=== PATIENT | female | born 1965 | race Caucasian/White ===

== ENCOUNTER 2019-01-15 05:20 | Inpatient (IN) | payer BC ==
--- NOTE | 2019-01-13 11:11 | PREOPHP ---
DATE OF ADMISSION: 01/15/2019 HISTORY OF PRESENT ILLNESS: This is a 53-year-old female, 5, para 4, abortions 1 with a prev ious tubal ligation. This patient has been fighting a fibroid uterus for a long time and having all kinds of medical treatment without alleviation of her bleeding and pain. She was referred to me by h er clinic due to uterine prolapse as well. The patient was feeling her cervix was coming out of her, and she had 2 jobs standing up and she was having difficulties with that problem. The patient had n o problems with incontinence and no discharge and no problems. Otherwise, she was not sexually activ e at the moment. She had a previous section and history of hypertension that she has been t reating with benazepril and Hydrochlorothiazide. ALLERGIES: She is not allergic to any medication. FAMILY HISTORY: Hypertension and heart attacks. The patient was evaluated and was found to have a v jamia large uterus high up in the pelvis 13 cm of diameter. The procedure was to do an abdominal hyste rectomy bilateral salpingectomy. PHYSICAL EXAMINATION: GENERAL APPEARANCE: Good. VITAL SIGNS: Blood pressure of 130/60, pulse is 80, respirations 16. She weighs 178 pounds and she is 5 feet 3 inches. HEAD AND NECK: Normal. BREASTS: Soft, nontender, no masses. CHEST: Clear. HEART: Normal sinus rhythm. LUNGS: Clear. ABDOMEN: Soft and the uterus is palpated above the pubic bone. PELVIC: With a cystocele grade II. The cervix is at the introitus. The uterus was retroverted and enlarged. Adnexa were nonpalpable. GENITALIA: Normal. RECTAL: Normal. PLAN: The patient is advised for a total abdominal hysterectomy, bilateral salpingectomy due to a la rge uterus previous section and the possibility of pelvic adhesions. The procedure was firs t offered to be vaginally until we found out that size of the uterus being so large. The patient has been advised of the possible risks and possible complications of the procedure with her alternatives and options. Written information was provided. She had no more questions and agreed to go ahead wi th the procedure with full understanding and no more questions. Dictated By: ALPHONSO PADRON/KAT Conf#: [id number] [facility]#: [id number]
[~2019-01-15] VITALS: Ht 160 cm; Wt 83.0 kg
[2019-01-15] VITALS (22 sets, daily range): BP systolic 100–136; BP diastolic 52–69; PULSE 69–93; RESP 11–21; Ht 160 cm; Wt 83.0 kg
[2019-01-15] MEDS ORDERED: HYDR12.58 PO (06:49)
[2019-01-15] MEDS ORDERED: BENA40TA56 PO (06:49)
[2019-01-15] MEDS ORDERED: LACTATED RINGER'S 1,000 ML IV SCH (07:00)
[2019-01-15] MEDS ORDERED: CEFAZOLIN 2 GM/50 ML (PMX) 50 ML IVPB ONE (07:00)
--- NOTE | 2019-01-15 07:14 | PREAC ---
Date/Time of Note Date/Time of Note DATE: 01/15/19 TIME: 07:10 Anesthesia Eval and Record Evaluation Time Pre-Procedure Interview DATE: 01/15/19 TIME: 07:10 Age 53 Sex female NPO: 8 hrs Preoperative diagnosis operator lights bleed Planned procedure RICHY Past Medical History Past Medical History: None Cardio: HTN Surgery & Anesthesia Issues No known issue Meds Anticoagulation: No Beta Danii within 24 hr: No Reason Beta Danii not given: Pt. not on B-Danii Reported Medications Hydrochlorothiazide* (Hydrochlorothiazide*) 12.5 Mg Tablet, 12.5 MG PO DAILY, #30 TAB 01/15/19 Benazepril Hcl* (Benazepril Hcl*) 40 Mg Tablet, 40 MG PO DAILY, #30 TAB 01/15/19 Current Medications Cefazolin Sodium/ Dextrose 50 ml @ 100 mls/hr PRE-OP ONCE IVPB ; Start 01/15/19 at 07:00; Stop 01/15/19 at 07:29 Lactated Ringer's 1,000 ml @ 125 mls/hr Q8H IV ; Start 01/15/19 at 07:00 Meds reviewed: Yes Allergies Coded Allergies: No Known Allergy (Unverified , 01/15/19) Allergies Reviewed: No Labs/Studies Labs Reviewed: Reviewed by anesthesiologist Blood Bank Test 01/15/19 05:59 Blood Product Summary Counts test: N/A Pre-procedure Exam Last vitals Vital Signs Date Temp Pulse Resp B/P (MAP) Pulse Ox O2 O2 Flow FiO2 Time Delivery Rate 01/15/19 98.6 74 18 125/54 100 Room Air 06:48 (77) Airway: Adequate mouth opening Mallampati: Mallampati II Teeth: Normal Lung: Normal Heart: Normal ASA Physical Status ASA physical status: 3 Emergency: None Planned Anesthetic General/MAC: ETT Neuraxial: Spinal Pre-operative Attestations Prior to commencing anesthesia and surgery, the patient was re-evaluated, there was verification of: *The patient's identity *The results of appropriate recent lab work and preoperative vital signs *The above evaluation not changing prior to induction *Anesthetic plan, risk benefits, alternative and complications discussed with patient/family; questions answered; patient/family understands, accepts and wishes to proceed. DIEGO HANDY MD Jan 15, 2019 07:14
--- NOTE | 2019-01-15 07:34 | HPN ---
Date/Time of Note Date/Time of Note DATE: 01/15/19 TIME: 07:34 Interval H&P Admission Note Pt. seen H&P reviewed: No system changes ALPHONSO GUNDERSON MD Jan 15, 2019 07:34
[2019-01-15] MEDS ORDERED: ROCURONIUM 50 MG INJ ONE (07:48)
[2019-01-15] MEDS ORDERED: PROPOFOL 20 ML ONE (07:48)
[2019-01-15] MEDS ORDERED: MIDAZOLAM 1 MG/ML 2 ML INJ ONE (07:48)
[2019-01-15] MEDS ORDERED: LIDOCAINE 1% (MDV) 20 ML INJ ONE (07:49)
[2019-01-15] MEDS ORDERED: morphine SULFATE/PF (10 MG/10 ML) INJ ONE (07:55)
[2019-01-15] MEDS ORDERED: DEXAMETHASONE 4 MG/ML 5 ML INJ ONE (09:52)
[2019-01-15] MEDS ORDERED: ONDANSETRON 4 MG INJ ONE (09:52)
--- NOTE | 2019-01-15 10:28 | PAC ---
Date/Time of Note Date/Time of Note DATE: 01/15/19 TIME: 10:27 Post-Anesthesia Notes Post-Anesthesia Note Last documented vital signs Vital Signs Date Temp Pulse Resp B/P (MAP) Pulse Ox O2 O2 Flow FiO2 Time Delivery Rate 01/15/19 98.6 74 18 125/54 100 Room Air 06:48 (77) Activity: WNL Respiratory function: WNL Cardiovascular function: WNL Mental status: Baseline Pain reasonably controlled: Yes Hydration appropriate: Yes Nausea/Vomiting absent: Yes DIEGO HANDY MD Jan 15, 2019 10:28
[2019-01-15] MEDS ORDERED: DIPHENHYDRAMINE 50 MG INJ IV PRN (10:30)
[2019-01-15] MEDS ORDERED: NALOXONE (0.4 MG/ML) INJ IV PRN (10:30)
[2019-01-15] MEDS ORDERED: ZOLPIDEM 5 MG TAB PO PRN (10:30)
[2019-01-15] MEDS ORDERED: ONDANSETRON INJ 6 MG in DEXTROSE 5% 50 ML IVPB PRN (10:30)
[2019-01-15] MEDS ORDERED: HYDROmorphONE 1 MG/ML SYG IV PRN (10:30)
[2019-01-15] MEDS ORDERED: ONDANSETRON 4 MG INJ IV PRN (10:30)
[2019-01-15] MEDS ORDERED: HYDROCODONE/APAP (5/325) TAB PO PRN (10:30)
[2019-01-15] MEDS ORDERED: HYDROmorphONE 0.5 MG/0.5 ML SYG IV PRN (10:30)
[2019-01-15] MEDS ORDERED: DIPHENHYDRAMINE 50 MG CAP PO PRN (10:30)
--- NOTE | 2019-01-15 10:46 | SIPON ---
Date/Time of Note Date/Time of Note DATE: 01/15/19 TIME: 10:44 Operative Report Preoperative Diagnosis Intractable menometrorrhagia and pelvic pain. Large fibroid uterus Pelvic adhesions Perimenopause anemia Hypertension Postoperative Diagnosis Same plus left ovarian cyst Operation/Procedure Performed Total abdominal hysterectomy and bilateral salpingectomy. Left ovarian cystectomy Extensive lysis of adhesions Surgeon see signature line pediatric assistant Dr Hayden Anesthesia: general Estimated blood loss: 100 - 150 ml's Transfusion Required none Specimen Uterus and tubes and left ovarian cyst wall Grafts/Implants none Complications none ALPHONSO GUNDERSON MD Jan 15, 2019 10:46
[2019-01-15] MEDS: KETOROLAC 30 MG INJ IV SCH ×3 (11:47→22:42)
[2019-01-15] MEDS: LACTATED RINGER'S 1,000 ML IV SCH ×2 (11:48→18:51)
[2019-01-15] MEDS: METOCLOPRAMIDE 10 MG TAB PO SCH ×3 (12:20→23:55)
--- NOTE | 2019-01-15 14:09 | OPR ---
DATE OF OPERATION: 01/15/2019 PROCEDURE: Total abdominal hysterectomy, bilateral salpingectomy, right ovarian cystectomy, lysis of adhesions. PREOPERATIVE DIAGNOSES: 1. Intractable menometrorrhagia. 2. Large fibroid uterus. 3. Perimenopause. 4. Pelvic adhesions. 5. Anemia. 6. Hypertension. POSTOPERATIVE DIAGNOSES: 1. Intractable menometrorrhagia. 2. Large fibroid uterus. 3. Perimenopause. 4. Pelvic adhesions. 5. Anemia. 6. Hypertension. 7. Right ovarian cyst. 8. Severe pelvic adhesions. SURGEON: Alphonso Mancilla MD. RESIDENT CARE ASSOCIATE: Dr. Cali. ANESTHESIOLOGIST: Alea Turner MD. ANESTHESIA: General anesthesia and Duramorph. COMPLICATIONS: None. DESCRIPTION OF PROCEDURE: The patient was given general anesthesia and Duramorph anesthesia, placed in the supine position. The abdomen was prepped and draped and a Bosch catheter was placed in the bl adder. A transverse incision was made suprapubically over the midline where the previous se ction was performed, the size of a 10 cm over the incision. The abdominal cavity was reached. There was scar tissue on the incision and there was scar tissue at the level of the bladder when we inspec t the abdomen. There were no omental adhesions, but there was severe adhesion of the bladder to the cervix and there was a right ovarian cyst. There were signs of tubal ligation. The self-retaining r etractor was placed. The uterus with the fibroid was held up with a Jeffrey clamp and the round ligame nts were burned and cut with the bipolar instrument and the ovarian ligament and tubes were cut in guanako th sides and the dissection was followed by incising the anterior peritoneum to produce a bladder fla p. The area was solid between the cervix and bladder where we used the cautery to try to separate it . The uterine vessels were clamped, cut and tied and also burned and the and the cardinal ligaments and uterosacral ligaments were clamped with straight clamps, cut and ligated with #1 Vicryl sutures a nd the sutures were held. The vaginal canal was reached posteriorly where we found possible nabothia n cysts, a large nabothian cyst on the cervix and also another mass that was more solid that gave us a wide resection of the vaginal cuff due to the presence of these tumors. The corners of the vagina were held and the vagina was closed with #1 Vicryl interrupted sutures for the corners of the vagina and interrupted sutures for closure of the rest of the vagina. The cavity was looked at underwater a nd there was no active bleeding. At this point, there was a cyst on the right ovary that was removed with cautery first and then we peeled the cyst and put a stitch with a 2-0 Vicryl on the ovarian tis andres to produce a hemostasis. We did this as a continuous suture. The right and left tube were remov ed by cauterizing the mesosalpinx on both sides with the bipolar instrument used and hemostasis was a chieved. The cavity was again cleaned out. Both ovaries were protected with Interceed to prevent ad hesions. The cavity was closed using a 2-0 Vicryl suture for peritoneum, #0 PDS looped suture to the fascia, 2-0 Vicryl for the subcutaneous tissue, 3-0 Monocryl subcuticular to the skin and Dermabond and Steri-Strips, a pressure dressing as well. The patient tolerated the procedure well and left the OR awake and stable. Sponge counts and instrument counts were correct. Intravenous antibiotics wer e given for prophylaxis. Blood loss was minimal, less than 100 mL. The urine was clear at the end o f the procedure. The sponge counts and instrument counts were correct again. The ureters were track ed down with good peristalsis and the patient left the OR awake and stable. Dictated By: ALPHONSO PADRON/KAT Conf#: [id number] [facility]#: [id number]
[2019-01-15] MEDS: CEFAZOLIN 1 GM/50 ML (PMX) 50 ML IVPB SCH ×2 (14:20→21:46)
[2019-01-16 00:22] VITALS: BP 113/59; PULSE 65; RESP 18
[2019-01-16] MEDS: LACTATED RINGER'S 1,000 ML IV SCH (03:34)
[2019-01-16 04:10] VITALS: BP 128/59; PULSE 58; RESP 18
[2019-01-16] MEDS: KETOROLAC 30 MG INJ IV SCH ×4 (04:43→22:52)
[2019-01-16] MEDS: METOCLOPRAMIDE 10 MG TAB PO SCH ×4 (05:51→22:54)
[2019-01-16] MEDS: CEFAZOLIN 1 GM/50 ML (PMX) 50 ML IVPB SCH (05:51)
[2019-01-16 08:25] VITALS: BP 128/63; PULSE 66; RESP 18
[2019-01-16] MEDS: HYDROCHLOROTHIAZIDE 12.5 MG CAP PO SCH (09:22)
[2019-01-16] MEDS: BENAZEPRIL 40 MG TAB PO SCH (09:23)
--- NOTE | 2019-01-16 09:46 | PN ---
Date/Time of Note Date/Time of Note DATE: 01/16/19 TIME: 09:45 Assessment/Plan Lines/Catheters IV Catheter Type (from Nrsg): Peripheral IV Bosch in Place (from Nrsg): Yes Subjective 24 Hr Interval Summary Day 1 postop. Afebrile Feels good with no pain. Stable, encouraged ambulation. Patient explained about her surgical findings and procedure and she is very uli reciative of it Constitutional: no complaints Feeding: advancing diet Pain Control: mild Detailed Summary Eyes: no complaints ENT: no complaints Respiratory: no complaints Cardiovascular: no complaints Gastrointestinal: no complaints Genitourinary: no complaints Musculoskeletal: no complaints Skin: no complaints Neurologic: no complaints Endocrine: no complaints Lymphatic: no complaints Psychological: no complaints, nl mood/affect Immunologic: no complaints Exam/Review of Systems Vital Signs Vitals Vital Signs Date Temp Pulse Resp B/P (MAP) Pulse Ox O2 O2 Flow FiO2 Time Delivery Rate 01/16/19 98.5 66 18 128/63 98 Nasal 08:25 (84) Cannula 01/16/19 2.0 04:10 Intake and Output 01/15/19 01/15/19 01/16/19 1515:00 23:00 07:00 IntakeIntake Total 900 ml 1290 ml 1425 ml OutputOutput Total 150 ml 400 ml BalanceBalance 750 ml 1290 ml 1025 ml Exam Constitutional: alert, oriented, well developed Psych: no complaints, nl mood/affect Head: normocephalic, atraumatic Eyes: nl conjunctiva, EOMI, nl lids, nl sclera ENMT: nl external ears & nose, nl lips & teeth, nl nasal mucosa & septum, mucosa pink and moist Neck: supple, non-tender Respiratory: clear to auscultation, normal air movement Cardiovascular: regular rate and rhythm, nl pulses Gastrointestinal: soft, nl liver, spleen, non-tender Musculoskeletal: nl extremities to inspection, nl gait and stance Extremities: normal pulses Neurological: FLIGHT ENGINEER HELICOPTER II-XII intact, nl mental status, nl speech, nl strength Skin: nl turgor, rash or lesions Lymph: nl lymph nodes Results Result Diagram: 01/16/19 0432 01/16/19 0432 ALPHONSO GUNDERSON MD Jan 16, 2019 09:46
[2019-01-16 14:07] VITALS: BP 126/61; PULSE 59; RESP 18
[2019-01-16 19:37] VITALS: BP 118/59; PULSE 64; RESP 18
[2019-01-16] MEDS ORDERED: BISACODYL (EC) 5 MG TAB PO ONE (22:00)
[2019-01-17 01:18] VITALS: BP 130/62; PULSE 85; RESP 18
[2019-01-17] MEDS: METOCLOPRAMIDE 10 MG TAB PO SCH ×3 (05:20→17:05)
[2019-01-17] MEDS: KETOROLAC 30 MG INJ IV SCH ×4 (05:20→22:33)
--- NOTE | 2019-01-17 08:09 | PN ---
Date/Time of Note Date/Time of Note DATE: 01/17/19 TIME: 08:07 Assessment/Plan Lines/Catheters IV Catheter Type (from Nrsg): Saline Lock Bosch in Place (from Nrsg): Yes Subjective 24 Hr Interval Summary Day 2 postop. Afebrile, feels good, had several bowel movements after laxative. No complaints Pain is tolerated Encouraged ambulation. Possible discharge home tomorrow Slightly anemic with patient is used to anemia due to her chronic bleeding so she does not have symptoms. Incision healing well Constitutional: no complaints, ambulates Feeding: advancing diet Pain Control: mild Detailed Summary Eyes: no complaints ENT: no complaints Respiratory: no complaints Cardiovascular: no complaints Gastrointestinal: no complaints Genitourinary: no complaints Musculoskeletal: no complaints Skin: no complaints Neurologic: no complaints Endocrine: no complaints Lymphatic: no complaints Psychological: no complaints, nl mood/affect Immunologic: no complaints Exam/Review of Systems Vital Signs Vitals Vital Signs Date Temp Pulse Resp B/P (MAP) Pulse Ox O2 O2 Flow FiO2 Time Delivery Rate 01/17/19 98.8 85 18 130/62 98 01:18 (84) 01/16/19 Room Air 14:07 01/16/19 2.0 04:10 Intake and Output 01/16/19 01/16/19 01/17/19 1515:00 23:00 07:00 IntakeIntake Total 1180 ml 440 ml 940 ml BalanceBalance 1180 ml 440 ml 940 ml Exam Constitutional: alert, oriented, well developed Psych: no complaints, nl mood/affect Head: normocephalic, atraumatic Eyes: nl conjunctiva, EOMI, nl lids, nl sclera ENMT: nl external ears & nose, nl lips & teeth, nl nasal mucosa & septum, mucosa pink and moist Neck: supple, non-tender Respiratory: clear to auscultation, normal air movement Cardiovascular: regular rate and rhythm, nl pulses Gastrointestinal: soft, nl liver, spleen, non-tender Musculoskeletal: nl extremities to inspection, nl gait and stance Extremities: normal pulses Neurological: MAJOR ASSEMBLY LINEMAN II-XII intact, nl mental status, nl speech, nl strength Skin: nl turgor, rash or lesions Lymph: nl lymph nodes Results Result Diagram: 01/17/19 0456 01/16/19 0432 ALPHONSO GUNDERSON MD Jan 17, 2019 08:09
[2019-01-17 08:23] VITALS: BP 121/57; PULSE 76; RESP 18
[2019-01-17] MEDS: HYDROCHLOROTHIAZIDE 12.5 MG CAP PO SCH (08:29)
[2019-01-17] MEDS: BENAZEPRIL 40 MG TAB PO SCH (08:29)
[2019-01-17 14:39] VITALS: BP 119/58; PULSE 71; RESP 18
[2019-01-17 20:30] VITALS: BP 126/76; PULSE 76; RESP 18
[2019-01-18] MEDS: METOCLOPRAMIDE 10 MG TAB PO SCH ×5 (00:02→23:13)
[2019-01-18 02:21] VITALS: BP 134/62; PULSE 70; RESP 18
[2019-01-18] MEDS: KETOROLAC 30 MG INJ IV SCH (04:30)
[2019-01-18 08:21] VITALS: BP 139/67; PULSE 61; RESP 18
[2019-01-18] MEDS: HYDROCHLOROTHIAZIDE 12.5 MG CAP PO SCH (08:27)
[2019-01-18] MEDS: BENAZEPRIL 40 MG TAB PO SCH (08:27)
[2019-01-18] MEDS: HYDROCODONE/APAP (5/325) TAB PO PRN ×2 (08:29→21:24)
--- NOTE | 2019-01-18 10:16 | PN ---
Date/Time of Note Date/Time of Note DATE: 01/18/19 TIME: 10:14 Assessment/Plan Lines/Catheters IV Catheter Type (from Nrsg): Saline Lock Bosch in Place (from Nrsg): No Subjective 24 Hr Interval Summary Third day postop. Having right upper quadrant pain permanently . Excruciating pain alleviates with pain medication but does not go away Abdomen is distended, passing gases and had a small bowel movement Incision healing well Patient has been ambulatory she has been also voiding With no complaints. We will do CT scan to rule out gallstones or other pathology as possible kidney obstruction from surgery Pain Control: moderate Detailed Summary Eyes: no complaints ENT: no complaints Respiratory: no complaints Cardiovascular: no complaints Gastrointestinal: no complaints Genitourinary: no complaints Musculoskeletal: no complaints Skin: no complaints Neurologic: no complaints Endocrine: no complaints Lymphatic: no complaints Psychological: no complaints, nl mood/affect Immunologic: no complaints Exam/Review of Systems Vital Signs Vitals Vital Signs Date Temp Pulse Resp B/P (MAP) Pulse Ox O2 O2 Flow FiO2 Time Delivery Rate 01/18/19 98.2 61 18 139/67 96 Room Air 08:21 (91) 01/16/19 2.0 04:10 Intake and Output 01/17/19 01/17/19 01/18/19 1515:00 23:00 07:00 IntakeIntake Total 600 ml 480 ml BalanceBalance 600 ml 480 ml Exam Constitutional: alert, oriented, well developed Psych: no complaints, nl mood/affect Head: normocephalic, atraumatic Eyes: nl conjunctiva, EOMI, nl lids, nl sclera ENMT: nl external ears & nose, nl lips & teeth, nl nasal mucosa & septum, mucosa pink and moist Neck: supple, non-tender Respiratory: clear to auscultation, normal air movement Cardiovascular: regular rate and rhythm, nl pulses Gastrointestinal: soft, nl liver, spleen, non-tender Musculoskeletal: nl extremities to inspection, nl gait and stance Extremities: normal pulses Neurological: DAY CARE SUPERVISOR II-XII intact, nl mental status, nl speech, nl strength Skin: nl turgor, rash or lesions Lymph: nl lymph nodes Results Result Diagram: 01/17/19 0456 01/16/19 0432 ALPHONSO GUNDERSON MD Jan 18, 2019 10:16
[2019-01-18 15:16] VITALS: BP 136/65; PULSE 60; RESP 18
[2019-01-18 20:30] VITALS: BP 140/64; PULSE 62; RESP 20
[2019-01-19 02:05] VITALS: BP 138/60; PULSE 60; RESP 18
[2019-01-19] MEDS: METOCLOPRAMIDE 10 MG TAB PO SCH ×2 (05:30→11:46)
[2019-01-19] MEDS: HYDROCODONE/APAP (5/325) TAB PO PRN (05:50)
[2019-01-19 07:52] VITALS: BP 140/60; PULSE 61; RESP 18
[2019-01-19] MEDS: HYDROCHLOROTHIAZIDE 12.5 MG CAP PO SCH (09:17)
[2019-01-19] MEDS: BENAZEPRIL 40 MG TAB PO SCH (09:18)
--- NOTE | 2019-01-19 13:43 | PD.PPDC ---
[employer] Discharge Instruction Condition [id number] Patient Condition: [id number] Good Diet [id number] Diet: [id number] Resume Regular Diet Activity/Restrictions [id number] Activity: [id number] Normal Activity May Shower [id number] Restrictions: [id number] No Exercising No Lifting No Driving No Sexual Activity Nothing in the Vagina No [place] No Tampons, douche Wound/Drain Care Instructions [id number] Wound/Drain Care Instructions: [id number] Wash with soap and water Keep clean and dry Follow-up Follow-up with Physician: 1, Week/Weeks Return to clinic for [id number] BUYER Instructions: [id number] Fever greater than 101 Chills Worsening abdominal pain Excessive Vaginal Bleeding More than 2 pads per hour Unable to tolerate diet [id number] Surgical Instructions: [id number] Incisional Drainage Incisional Redness ALPHONSO GUNDERSON MD Jan 19, 2019 13:43
--- NOTE | 2019-01-19 13:46 | DS ---
Date/Time of Note Date/Time of Note DATE: 01/19/19 TIME: 13:46 Discharge Summary Admission/Discharge Info Admit Date/Time Jan 15, 2019 at 05:20 Discharge Date/Time 01/19/2019 Discharge Diagnosis Large fibroid uterus Intractable pelvic pain and bleeding History of anemia Pelvic adhesions Diverticulosis Renal cyst Patient Condition: Good Procedures Total abdominal hysterectomy bilateral salpingectomy left ovarian cystectomy lysis of adhesions Hx of Present Illness 53 years old female with a history of fibroid uterus intractable pelvic pain and bleeding and anemia Referred to me for hysterectomy Hospital Course The patient underwent the procedure without complications and she stayed 1 more night due to right upper quadrant pain that was a possibility of gallstones or possible postoperative complications. The CT scan was negative The right upper quadrant pain is better today she is discharged today tolerating diet. Had a bowel movement and she is ambulatory incision is healing well. No problems in urination. Discharged on ibuprofen and [place] as needed. The patient is to see me in a week or earlier if she had any problem and she was advised how to reach me as an emergency. She is stable and in good conditions Home Meds Reported Medications Hydrochlorothiazide* (Hydrochlorothiazide*) 12.5 Mg Tablet, 12.5 MG PO DAILY, #30 TAB 01/15/19 Benazepril Hcl* (Benazepril Hcl*) 40 Mg Tablet, 40 MG PO DAILY, #30 TAB 01/15/19 Follow-up Plan 1 week Primary Care Provider Not On Staff Doctor ALPHONSO GUNDERSON MD Jan 19, 2019 13:46
[2019-01-19 14:48] VITALS: BP 136/62; PULSE 72; RESP 18
== END 2019-01-19 15:20 | disposition home or self-care (01) | DRG 743 ==
LOC: REC 05:20 → MS1 11:11
PROVIDERS: ADMIT Obstetrics & Gynecology; ATTEND Obstetrics & Gynecology
PROC: 0UT70ZZ Resection of Bilateral Fallopian Tubes, Open Approach (ICD-10-PCS; 2019-01-15)
PROC: 0UB00ZZ Excision of Right Ovary, Open Approach (ICD-10-PCS; 2019-01-15)
PROC: 0UT90ZZ Resection of Uterus, Open Approach (ICD-10-PCS; principal; 2019-01-15 07:30)
DX: D25.9 Leiomyoma of uterus, unspecified (principal); I10 Essential (primary) hypertension; D64.9 Anemia, unspecified; N83.201 Unspecified ovarian cyst, right side; K57.90 Diverticulosis of intestine, part unspecified, without perforation or abscess without bleeding; N28.1 Cyst of kidney, acquired
CPT/HCPCS: 74176; 80051; 82565; 84520; 85025; 86850; 86900; 86901; 86920; 87086; 88305; J0690; J1100; J1170; J1885; J2250; J2274; J2405; J3010; J7120